=== PATIENT | female | born 1990 | race Caucasian/White ===

== ENCOUNTER 2022-06-13 09:27 | Emergency (ER) | payer BC, SELFPAY ==
[2022-06-13 09:48] VITALS: BP 107/67; PULSE 92; RESP 18; TEMP 37; O2SAT 100
--- NOTE | 2022-06-13 12:27 | ED.GENADULT ---
HPI - General Adult General Chief complaint: Nausea/Vomiting/Diarrhea Stated complaint: flu +, gastroperesis Time Seen by Provider: 06/13/22 11:13 History of Present Illness HPI narrative: This is a 31-year-old female presents with chief complaint of nausea x3 days. She has a history of gastroparesis and felt like she was having a flare on Monday. Also reports body aches and some sore throat. Patient states that she has not vomited, has been taking Zofran for nausea. Denies diarrhea. Reports some abdominal discomfort in the left upper quadrant which is what she normally has with her gastroparesis. Also notes some suprapubic discomfort. Denies fevers, chills, headache, LOC, dizziness. Denies chest pain, shortness of breath, cough. Related Data Home Medications Medication Instructions Recorded Confirmed una peptase .Route 02/04/21 07/27/21 smarty pants- womans .Route 02/04/21 07/27/21 tick immune support .Route 02/04/21 07/27/21 naltrexone 50 mg tablet 1.5 mg PO DAILY 07/27/21 07/27/21 Allergies Allergy/AdvReac Type Severity Reaction Status Date / Time clarithromycin Allergy Mild Unknown Verified 07/27/21 11:32 matheus Allergy Mild Unknown Verified 07/27/21 11:32 hydroxychloroquine Allergy Mild Unknown Verified 07/27/21 11:32 [From Plaquenil] peanut Allergy Mild Unknown Verified 07/27/21 11:32 Sulfa (Sulfonamide Allergy Mild Unknown Verified 07/27/21 11:32 Antibiotics) wheat Allergy Mild Unknown Verified 07/27/21 11:32 Review of Systems Review of Systems: CONSTITUTIONAL: Endorses fatigue and body aches. Denies fever, chills, or sweats. EYES: Denies visual changes, redness, or discharge. ENT: Endorses sore throat. denies rhinorrhea, congestion, sore throat, or otalgia. CARDIOVASCULAR: Denies chest pain, palpitations, or edema. RESPIRATORY: Denies cough or dyspnea. GASTROINTESTINAL: Endorses abdominal discomfort. endorses nausea. Denies vomiting or diarrhea. GENITOURINARY: Denies dysuria or hematuria. Denies frequency. SKIN: Denies rash or itching. MUSCULOSKELETAL: Denies back pain, joint pain, or myalgia. NEUROLOGIC: Denies headache, numbness, dizziness, or weakness. PSYCHIATRIC: Denies anxiety or depression. PMFSH Past Medical History Medical History Allergies Bartonella infection Surgical History Surgical History Hx of tonsillectomy [place] teeth removed Family History Family History Father Depression Mother Hypertension Grandparent Asthma Breast cancer Hypertension Cerebrovascular accident Social History Social History Smoking status: Never smoker Alcohol intake: never Substance use: never Exam Narrative: GENERAL: Well-appearing, well-nourished, and in no acute distress. HEAD: Normocephalic, atraumatic. EYES: PERRLA and EOMI. ENT: Nares clear, no rhinorrhea or epistaxis. Mucous membranes moist. Posterior oropharynx erythema is present. Oropharynx without tonsillar hypertrophy exudate or other lesions. NECK: Supple. No adenopathy or masses. CHEST: No respiratory distress. Clear to auscultation. No wheezes rales or rhonchi HEART: Regular rate and rhythm. No murmur heard. Normal peripheral pulses. ABDOMEN: Soft, nontender, nondistended, normal active bowel sounds. Grossly nontender abdomen. EXTREMITIES: Normal range of motion. No edema. SKIN: Warm, dry, no rash. NEURO: Alert and oriented x3. No focal deficits. PSYCH: Normal mood and affect. Course Vital Signs Vital signs: Vital Signs Temperature 98.6 F 06/13/22 09:48 Pulse Rate 92 06/13/22 09:48 Respiratory Rate 18 06/13/22 09:48 Blood Pressure 107/67 06/13/22 09:48 Pulse Oximetry 100 06/13/22 09:48 Oxygen Delivery Room Air 06/13/22 09:48 Temperature 98.6 F
[2022-06-13 13:05] LABS: Basophils Percent Auto 0.4 % (0.2-1.2); Eosinophils Percent Auto 0.8 % (0-4.4); Hemoglobin 13.1 g/dL (12.0-15.0); Immature Granulocyte Absolute 0.01 K/mm3 (0.00-0.031); Immature Granulocyte Percent A 0.4 % (0-0.5); Lymphocytes Absolute Auto 0.87 K/mm3 (0.9-3.2); Lymphocytes Percent Auto 35.2 % (18.3-44.2); Mean Corpuscular HGB Conc 34.5 g/dl (32-36); Mean Corpuscular Hemoglobin 31.3 pg (26-34); Mean Corpuscular Volume 90.7 fl (80-100); Mean Platelet Volume 10.4 fl (7.4-10.4); Monocytes Absolute Auto 0.3 K/mm3 (0.1-0.6); Monocytes Percent Auto 13.4 % (2.6-8.5); Neutrophils Absolute Auto 1.2 K/mm3 (1.3-6.7); Neutrophils Percent Auto 49.8 % (45.5-73.1); Platelet Count Result 158 k/mm3 (150-375); Red Blood Count 4.19 M/mm3 (4.2-5.4); Red Cell Distribution Width 12.6 % (11.5-14.5); White Blood Count 2.5 K/mm3 (4.5-10.0)
[2022-06-13] MEDS: SODIUM CHLORIDE 0.9% IV 1,000 ML 999 ML IV CONT (13:08)
[2022-06-13 13:09] VITALS: BP 94/59; PULSE 72; RESP 18; O2SAT 98
[2022-06-13 13:10] LABS: Alanine Aminotransferase 17 U/L (6-35); Albumin Level 3.7 g/dL (3.5-5.1); Alkaline Phosphatase 47 U/L (38-126); Anion Gap 5 mmol/L (8-16); Aspartate Amino Transferase 32 U/L (14-36); Bilirubin,Total 0.3 mg/dL (0.2-1.3); Blood Urea Nitrogen 11 mg/dL (7-17); Calcium 8.2 mg/dL (8.4-10.2); Carbon Dioxide 25 mmol/L (22-30); Chloride 104 mmol/L (98-107); Estimated CRCL calculation 131 ml/min; Estimated Glomerular Filt Rate > 60; Glucose 89 mg/dL (65-110); Potassium 3.7 mmol/L (3.4-5.0); Sodium 134 mmol/L (137-145)
[2022-06-13 13:34] LABS: Influenza A QL RT-PCR Negative (Negative); Influenza B QL RT-PCR Negative (Negative); RSV RNA, RT-PCR Negative (Negative); SARS-CoV-2 RNA PCR Positive
[2022-06-13 13:36] LABS: Appearance Urine Clear (Clear); Bilirubin Urine 1+ (Negative); Blood Urine Negative (Negative); Color Urine Yellow (Yellow); Glucose Urine UA Negative (Negative); Ketones Urine 3+ mg/dL (Negative); Leukocyte Esterase Ur Negative LEU/UL (Negative); Nitrate Urine Negative (Negative); Protein Urine 1+ mg/dL (Negative); Specific Grav Ur >= 1.030 (1.001-1.035); Urobilinogen Urine 0.2 mg/dL (<2.0)
[2022-06-13 13:45] LABS: Bacteria Urine Trace /hpf; Mucus Urine Rare /lpf; Squamous Epithelial Cell Urine Many /hpf (Few)
[2022-06-13 13:50] LABS: Strep Group A RT-PCR NOT DETECTED (Negative)
[2022-06-13 14:09] LABS: Add Urine Microscopic? YES
[2022-06-13 14:57] LABS: Pregnancy On Board Control Positive; Urine Pregnancy Test Positive
[2022-06-13 15:04] LABS: Beta HCG Quantitative 27.19 mIU/ML
[2022-06-13 15:33] VITALS: BP 103/66; PULSE 72; RESP 16; O2SAT 100
[2022-06-13 16:57] VITALS: BP 103/70; PULSE 70; RESP 16
== END 2022-06-13 16:58 | disposition home or self-care (01) ==
PROVIDERS: Emergency Provider Physician Assistant; PCP Nurse Practitioner Family
DX: O98.511 Other viral diseases complicating pregnancy, first trimester (principal); U07.1 COVID-19; R11.0 Nausea; Z3A.00 Weeks of gestation of pregnancy not specified
CPT/HCPCS: 36415; 80053; 81001; 81025; 84702; 85025; 87637; 87651; 96360; 99283; J7030

== ENCOUNTER 2022-11-04 16:50 | Observation (INO) | payer BC, SELFPAY ==
--- NOTE | 2022-11-04 16:50 | PC.NURSE ---
PT presented to unit from ER for abdominal pain and back pain. pt states pain started around 11;00 and talked to OB nurse at [facility] where pt has care with Dr. Sanchez. She didn't go because she felt better after taking bath but pain came back and got worse. Pt states [facility] is too far to go with this pain.
[2022-11-04 17:04] VITALS: BP 120/67; PULSE 73
[2022-11-04 17:14] VITALS: BMI 22.3
[2022-11-04 17:15] VITALS: BP 107/66; PULSE 68
[2022-11-04 17:24] LABS: Appearance Urine Turbid (Clear); Bacteria Urine None Seen /hpf; Bilirubin Urine Negative (Negative); Blood Urine 2+ (Negative); Color Urine Yellow (Yellow); Glucose Urine UA Negative (Negative); Ketones Urine Negative (Negative); Leukocyte Esterase Ur Trace LEU/UL (NEGATIVE); Nitrate Urine Negative (Negative); Non Pathogenic Casts 0-2; Protein Urine Negative (Negative); RBC Urine 21-50 /hpf (0-2); Specific Grav Ur 1.014 (1.001-1.035); Squamous Epithelial Cell Urine Few /hpf (Few); Urobilinogen Urine 0.2 mg/dL (<2.0); pH Urine 6.5 (5.0-9.0)
[2022-11-04 17:30] VITALS: BP 105/62; PULSE 70
[2022-11-04 17:30] LABS: Add Urine Microscopic? YES
[2022-11-04 17:45] VITALS: BP 109/69; PULSE 81
[2022-11-04] MEDS: LACTATED RINGERS 1,000 ML 999 ML IV CONT (18:31)
--- NOTE | 2022-11-04 19:53 | PC.NURSE ---
Pt states that she is feeling better and is comfortable with discharging home and no longer has any back pain. Discharge intructions given to patient and patient verbalizes understanding. Pt encouraged to see her primary provider with further concerns and for follow up. IV discontinued and pt discharged to home.
--- NOTE | 2022-11-07 19:38 | PM.OBTRLD ---
OB - Triage/Final Diagnosis Visit Information Comments/Additional reasons for admission: I have assessed the risk for this patient, Gilberto Myers, and determined that she would benefit from observation care. Evaluation Laboratory results: Laboratory Tests 11/04/22 17:11 Urine Color Yellow Urine Appearance Turbid H Urine pH 6.5 Ur Specific [place] 1.014 Urine Protein Negative Urine Glucose (UA) Negative Urine Ketones Negative Ur Blood (Man) 2+ H Urine Nitrate Negative Urine Bilirubin Negative Urine Urobilinogen 0.2 Ur Leukocyte Esterase Trace H Urine RBC 21-50 H Urine WBC 6-10 Ur Squamous Epith Cells Few Urine Bacteria None seen Urine Casts 0-2 Final Diagnosis (1) Abdominal pain affecting : Code(s): O26.899 - Other specified related conditions, unspecified trimester; R10.9 - Unspecified abdominal pain Status: Acute
== END 2022-11-04 20:00 | disposition home or self-care (01) ==
PROVIDERS: Admitting Provider Obstetrics & Gynecology; PCP Nurse Practitioner Family; Visit Provider Obstetrics & Gynecology
DX: O26.892 Other specified pregnancy related conditions, second trimester (principal); R10.9 Unspecified abdominal pain; Z3A.24 24 weeks gestation of pregnancy
CPT/HCPCS: 81001; 87086; G0378; G0379; J7120